=== PATIENT | female | born 1945 | race African-American/Black ===

== ENCOUNTER → 2017-09-23 | Outpatient (CLI) | payer MEDICARE ==
[~2017-09-23] MED LIST: AMLO10 PO; CALC600T PO; HYDR50TA3 PO; LEVO88TA2 PO; METO25TA3 PO; ZOSTINJ SQ
[2017-09-23 10:17] LABS: CALCIUM 9.7 MG/DL (8.5-10.1); CREATININE 0.98 MG/DL (0.50-1.00)
[2017-09-23 10:30] LABS: CHOLESTEROL/ HDL RATIO 3.1 RATIO; HDL CHOLESTEROL 63.7 MG/DL (40.0-60.0)
== END ==
LOC: CLAB 09:36
PROVIDERS: ATTEND Family Medicine
DX: E03.9 Hypothyroidism, unspecified (principal); I10 Essential (primary) hypertension
CPT/HCPCS: 36415; 80048; 80061; 84443; G0463; 99213